=== PATIENT | female | born 1990 | race Caucasian/White ===

== ENCOUNTER 2017-08-25 03:41 | Emergency (ER) | payer OTHER ==
[~2017-08-25] VITALS: Ht 162.6 cm; Wt 96.6 kg
--- NOTE | 2017-08-25 04:05 | NUR ---
PT TO ER BED 7, BIB SELF C/O BLURRED VISION X 7 HOURS. VSS/RESP EVEN UNLABORED/NAD NOTED. AWAITING MD SANCHEZ.
--- NOTE | 2017-08-25 04:07 | NUR ---
AT BEDSIDE FOR EVAL.
--- NOTE | 2017-08-25 04:34 | NUR ---
PT TO CT VIA WHEELCHAIR.
--- NOTE | 2017-08-25 04:42 | NUR ---
PT BACK FROM CT.
[2017-08-25 05:08] VITALS: BP 127/79
--- NOTE | 2017-08-25 05:08 | NUR ---
Patient discharged to home in stable condition. Written and verbal after care instructions given. Patient verbalizes understanding of instruction. Pt ambulatory with a steady gait.
== END 2017-08-25 05:09 | disposition home or self-care (01) ==
LOC: ER 03:45
DX: H53.8 Other visual disturbances (principal); T50.905A Adverse effect of unspecified drugs, medicaments and biological substances, initial encounter; F41.9 Anxiety disorder, unspecified; F42.9 Obsessive-compulsive disorder, unspecified; R51 Headache; F10.10 Alcohol abuse, uncomplicated; Y92.89 Other specified places as the place of occurrence of the external cause
CPT/HCPCS: 70450; 99284; A4606; Z7610